=== PATIENT | male | born 1940 | race Caucasian/White ===

== ENCOUNTER 2017-04-05 14:26 | Outpatient (CLI) | payer MEDICARE, OTHER ==
--- NOTE | 2017-04-05 16:01 | XRAY Report ---
DATE OF SERVICE: 04/05/2017 THREE VIEW LUMBAR SPINE: 04/05/2017 CLINICAL INDICATION: Sciatica. FINDINGS: AP, lateral, and coned down views of the lumbar spine demonstrate moderate degenerative disk and facet disease. There is no evidence of acute fracture or subluxation. The bowel gas pattern appears unremarkable. IMPRESSION: MODERATE DEGENERATIVE CHANGES. TD: 04/05/2017 17:00
== END 2017-04-05 14:27 | disposition home or self-care (01) ==
LOC: DI.S 14:26
PROVIDERS: ATTEND Nurse Practitioner Family
DX: M51.36 Other intervertebral disc degeneration, lumbar region (principal); M47.896 Other spondylosis, lumbar region
CPT/HCPCS: 72100

== ENCOUNTER 2020-10-12 07:56 | Day surgery (SDC) | payer MEDICARE, OTHER ==
[2020-10-12] MEDS ORDERED: LACTATED RINGERS 1,000 ML IV ONE ×2 (08:17→09:41)
[2020-10-12] MEDS ORDERED: MIDAZOLAM 2 MG/2 ML VIAL ONE ×2 (09:09)
[2020-10-12] MEDS ORDERED: ONDANSETRON 4 MG/2 ML VIAL ONE (09:09)
[2020-10-12] MEDS ORDERED: fentaNYL 250 MCG/5 ML VIAL ONE (09:09)
[2020-10-12 10:10] VITALS: BP 125/64
== END 2020-10-12 07:57 | disposition home or self-care (01) ==
LOC: SDS 07:56
PROVIDERS: ATTEND Surgery
PROC: 0DBP8ZZ Excision of Rectum, Via Natural or Artificial Opening Endoscopic (ICD-10-PCS; principal; 2020-10-12 09:15)
DX: Z12.11 Encounter for screening for malignant neoplasm of colon (principal); K62.1 Rectal polyp; K64.8 Other hemorrhoids; K57.30 Diverticulosis of large intestine without perforation or abscess without bleeding; K64.4 Residual hemorrhoidal skin tags
CPT/HCPCS: 45380; J3010; J7120; 88305

== ENCOUNTER 2021-12-23 17:52 | Outpatient (CLI) | payer MEDICARE, OTHER | END 2021-12-23 17:53 | disposition critical access hospital (66) | LOC: EMS 17:52 | DX: R55 Syncope and collapse (principal); S01.01XA Laceration without foreign body of scalp, initial encounter; R11.2 Nausea with vomiting, unspecified; W18.39XA Other fall on same level, initial encounter; Y92.008 Other place in unspecified non-institutional (private) residence as the place of occurrence of the external cause; Z72.89 Other problems related to lifestyle | CPT/HCPCS: A0425; A0429 ==

== ENCOUNTER 2021-12-23 18:31 | Emergency (ER) | payer MEDICARE, OTHER ==
[2021-12-23] MEDS ORDERED: SODIUM CHLORIDE 0.9% 1,000 ML IV STA (19:18)
--- NOTE | 2021-12-23 19:18 | ED Physician Documentation ---
History of Present Illness - Stated complaint Stated Complaint: SYNCOPE, HEAD LAC - Chief complaint Chief Complaint: Trauma Hd/Nk - Additonal information Additional information: 81-year-old male presents emergency department for evaluation of a syncopal episode. His describes him as an alcoholic states he typically has 4 beers a day. He had had about 4 beers today as well as smoked cannabis. He was sitting at the dinner table getting ready to eat when he stood up fainted. His describes that he lost consciousness for just a few seconds but did become incontinent of urine. There were is no activity at the bedside to suggest seizure. No history of similar. He is not anticoagulated. He does have a large laceration his posterior occiput which is bleeding. However he is alert and oriented. He is requesting to urinate right now. Review of Systems Constitutional: reports: Reviewed and negative Eyes: reports: Reviewed and negative Ears: reports: Reviewed and negative Cardiac: reports: Reviewed and negative Respiratory: reports: Reviewed and negative GI: reports: Reviewed and negative : reports: Reviewed and negative Skin: reports: Laceration (s) Neurologic: reports: Syncope, Head injury. denies: Focal weakness, Numbness, Seizure, Confused, Headache, LOC Psychiatric: reports: Depressed PD PAST MEDICAL HISTORY - Past Medical History Cardiovascular:  Respiratory: None Endocrine/Autoimmune: None GI: Colon polyps : Benign prostate hypertrophy HEENT: None Psych: Depression, Anxiety Musculoskeletal: Osteoarthritis Derm: Psoriasis - Past Surgical History Past Surgical History: Yes General: Other Ortho: Knee replacement, Arthroscopic surgery, Other HEENT: Cataracts - Present Medications Home Medications: Ambulatory Orders Medication Instructions Recorded Confirmed Escitalopram [Lexapro] 20 mg PO DAILY 09/04/12 10/12/20 Fluticasone [Flonase] 2 sprays ALEXANDRA BID 10/20/14 10/12/20 HYDROcod/ACETAM 5/325 [[place] 5/325] 1 tab PO DAILY #5 tablet 12/23/21 - Allergies Allergies/Adverse Reactions: Allergies Allergy/AdvReac Type Severity Reaction Status Date / Time codeine Allergy Rash Verified 12/23/21 18:43 doxazosin AdvReac Rash Verified 12/23/21 18:43 lisinopril AdvReac Rash Verified 12/23/21 18:43 simvastatin AdvReac Rash Verified 12/23/21 18:43 tamsulosin HCl * AdvReac Anaphylaxis Verified 12/23/21 18:43 [From Flomax] - Social History Does the pt smoke?: No Smoking Status: Former smoker Does the pt drink ETOH?: Yes Does the pt have substance abuse?: No - Immunizations Immunizations are current?: No Immunizations: TDAP >10years/unknown - POLST Patient has POLST: No PD ED PE NORMAL - General General: Alert and oriented X 3, No acute distress, Well developed/nourished - HEENT HEENT: Other (Large 4 cm laceration posterior occiput. Active bleeding.) - Neck Neck: Supple, no meningeal sign, No adenopathy - Cardiac Cardiac: RRR, No gallop - Respiratory Respiratory: No respiratory distress, Clear bilaterally - Abdomen Abdomen: Normal bowel sounds, Soft, Non tender - Back Back: No CVA TTP, No spinal TTP - Derm Derm: Normal color, Warm and dry, No rash - Extremities Extremities: No deformity, No tenderness to palpate, Normal ROM s pain - Neuro Neuro: Alert and oriented X 3, fine arts chair 2-12 intact Eye Opening: Spontaneous Motor: Obeys Commands Verbal: Confused GCS Score: 14 Results - Vitals Vitals: Vital Signs - 24 hr 12/23/21 12/23/21 18:38 19:28 Temperature 36.7 C Heart Rate 70 Heart Rate [ 74 Sitting] Heart Rate [ 78 Standing] Heart Rate [ 71 Supine] Respiratory 16 Rate Blood Pressure 169/83 H Blood Pressure 177/91 H [Sitting] Blood Pressure 171/89 H [Standing] Blood Pressure 184/85 H [Supine] O2 Saturation 100 Oxygen O2 Source Room air - EKG (time done) 1912 Rhythm: NSR [place]: Normal Intervals: Normal OR. No: Prolonged QT QRS: Normal Ischemia: Normal ST segments Compare to prior EKG: Old EKG unavailable Computer interpretation: Agree with computer - Labs Labs: Laboratory Tests 12/23/21 12/23/21 19:43 19:43 WBC 7.1 RBC 4.59 L Hgb 15.2 Hct 46.7 MCV 101.7 H MCH 33.1 H MCHC 32.5 RDW 12.9 Plt Count 193 MPV 10.6 Neut # (Auto) 5.3 Lymph # (Auto) 1.0 L Sanders # (Auto) 0.7 Eos # (Auto) 0.1 Baso # (Auto) 0.0 Absolute Nucleated RBC 0.00 Nucleated RBC % 0.0 Sodium 128 L Potassium 3.9 Chloride 92 L Carbon Dioxide 26 Anion Gap 10.0 BUN 7 Creatinine 0.8 Estimated GFR (MDRD) 93 Glucose 97 Calcium 8.5 Total Bilirubin 0.6 AST 24 ALT 20 Alkaline Phosphatase 47 Total Protein 6.7 Albumin 3.8 Globulin 2.9 Albumin/Globulin Ratio 1.3 Lipase 174 H - Rads (name of study) CT head Radiology: Final report received (No acute intracranial finding) cervical ct Radiology: Final report received (No evidence of acute traumatic cervical spine injury) Procedures - Laceration (location) scalp lacer Length in cm: 4 Wound type: Curved, Into subcut fat Neurovascular status: Sensory intact Tendon involvement: Tendon intact Wound preparation: Irrigated copiously NS Skin layer closure: Netta (7 netta placed) Other: Patient tolerated well, No complications, Neurovascular intact, Tetanus UTD PD MEDICAL DECISION MAKING - ED course Complexity details: reviewed results, considered differential, d/w patient, d/w family ED course: 81-year-old male presents emergency department for evaluation of a syncopal episode. He is an alcoholic and drinks on average of 4 beers a day. He also smoked cannabis. He stood up this evening and then fainted falling backwards. He struck his head on the counter. He did sustain a 4 cm posterior scalp laceration which was easily closed with 7 netta at the bedside. Subsequent CT imaging of the head and neck were unremarkable. Patient presents alert well-appearing. He had negative orthostatics. He is noted to be modestly hyponatremic with a sodium of 128 though this is not too far from his baseline on previous labs. 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 Screening EKG is nonischemic. Troponin was negative. He presents with no focal deficits and has a stable gait. I discussed with the at the bedside the need to moderate his alcohol use. Patient is discharged home in stable condition emergent return precautions otherwise discussed I am prescribing a short course of short-acting opioid pain medication for this patient. I have reviewed the patients [employer] and no concerning findings were n oted. I have discussed that the opioids are for short term therapy only, and will not be refilled from the ED. Departure - Departure Disposition: 01 Home, Self Care Clinical Impression: Syncope and collapse, Alcohol abuse, Hyponatremia Scalp hematoma Qualifiers: Encounter type: initial encounter Qualified Code(s): S00.03XA - Contusion of scalp, initial encounter Occipital scalp laceration Qualifiers: Encounter type: initial encounter Qualified Code(s): S01.01XA - Laceration without foreign body of scalp, initial encounter Condition: Stable Record reviewed to determine appropriate education?: Yes Prescriptions: HYDROcod/ACETAM 5/325 [[place] 5/325] 1 tab PO DAILY #5 tablet Comments: Abdulkadir seen today in the emergency department after a fainting episode at home. It sounds as though the most likely cause of the fainting was related to alcohol and cannabis use today. He has a large laceration on the back of his scalp. 7 netta were placed. They should be removed in 7 to 10 days. He can shower normally and apply a simple antibiotic ointment such as bacitracin or Neosporin to it. The CT of his head and neck did not show any acute findings or fractures. His blood work shows a mildly low sodium at 128. Its previously been low. We often see low sodium levels in people that are heavy drinkers. This is a condition called beer potomania. There is no acute treatment for today however it is a sign of heavy alcohol use. Over the next few days it is important to monitor Abdulkadir for sudden severe headaches, uncontrolled vomiting, changes in behavior mentation, slurred speech or facial droop. If any of these occur he should return immediately to the ER for a second evaluation. I am prescribing a short course of narcotic pain medication for you. These are potentially dangerous and addictive medications that should be used carefully. These medications may constipate you. Take an [id number] stool softener (docusate) twice daily with plenty of water while taking these medications. If you go 24 hours without a bowel movement, take [id number] miralax, per package instructions. Do not drink or drive while taking these medications. If you received narcotic or sedating medications while in the emergency department, do not drive for 24 hours. Store this medication in a safe, secure place and out of reach of children. It is a violation of federal law to give or sell this medication to another person or to use in a manner other than prescribed. The ED will not refill narcotic prescriptions, including prescriptions lost or stolen. To dispose of unwanted medications: 1. [facility] at [address] in [place] has a medication drop box. They accept prescription medications (in pill form) Saturday through Saturday 9:00 a.m. to 5:00 p.m. 2. The [facility] [employer] accepts prescription medications (in pill form only) for disposal year round. Call for more information. 3. Contact the [facility] for the next [facility] sponsored prescription drug collection event. , [phone], or [phone]; Note that many narcotic pain relievers also contain Tylenol/acetaminophen. Please ensure that your total dose of acetaminophen from all sources does not exceed 3 g (3000 mg) per day.
--- NOTE | 2021-12-23 19:43 | CT Report ---
PROCEDURE: HEAD WO INDICATIONS: Syncope, head laceration TECHNIQUE: Noncontrast 4.5 mm thick angled axial sections acquired from the foramen magnum to the vertex. For r adiation dose reduction, the following was used: automated exposure control, adjustment of mA and/or kV according to patient size. COMPARISON: None. FINDINGS: Image quality: Excellent. CSF spaces: Basal cisterns are patent. No extra-axial fluid collections. Ventricles are normal in size and shape. Brain: No midline shift. No intracranial masses or hemorrhage. Baker-white matter interface is norm al. Skull and face: Calvarium and visualized facial bones are intact, without suspicious lesions. Sinuses: Visualized sinuses and mastoids are clear. IMPRESSION: No acute intracranial finding. Reviewed by: Deniz Smith MD on 12/23/2021 7:42 PM PDT Approved by: Deniz Smith MD on 12/23/2021 7:42 PM PDT Station ID: [id number]
--- NOTE | 2021-12-23 19:46 | CT Report ---
PROCEDURE: CERVICAL SPINE WO INDICATIONS: Syncope TECHNIQUE: Noncontrast 3 mm thick sections acquired from the skull base to the T4 level. Sagittal and coronal r eformats were then constructed. For radiation dose reduction, the following was used: automated exp osure control, adjustment of mA and/or kV according to patient size. COMPARISON: None. FINDINGS: Image quality: Excellent. Bones: No fractures or dislocations. Visualized superior ribs are intact. Soft tissues: Prevertebral soft tissues are normal in thickness. No paravertebral hematomas. No ap ical pneumothoraces. IMPRESSION: No CT evidence of acute traumatic cervical spine injury. Reviewed by: Deniz Smith MD on 12/23/2021 7:44 PM PDT Approved by: Deniz Smith MD on 12/23/2021 7:44 PM PDT Station ID: [id number]
[2021-12-23 19:49] LABS: BASOPHILS % (AUTO) 0.6 %; EOSINOPHILS # (AUTO) 0.1 10^3/uL (0.0-0.7); EOSINOPHILS % (AUTO) 1.5 %; HCT - HEMATOCRIT 46.7 % (42.0-52.0); HGB - HEMOGLOBIN 15.2 g/dL (14.0-18.0); LYMPHOCYTES % (AUTO) 13.3 %; MEAN CORPUSCULAR HEMOGLOBIN 33.1 pg (27.0-31.0); MEAN CORPUSCULAR HGB CONC 32.5 g/dL (32.0-36.0); MEAN CORPUSCULAR VOLUME 101.7 fL (80.0-94.0); MEAN PLATELET VOLUME 10.6 fL (7.4-11.4); MONOCYTES # (AUTO) 0.7 10^3/uL (0.0-1.0); NEUTROPHILS # (AUTO) 5.3 10^3/uL (1.5-6.6); NEUTROPHILS % (AUTO) 74.2 %; PLT - PLATELET COUNT 193 10^3/uL (130-450); RED BLOOD COUNT 4.59 10^6/uL (4.70-6.10); RED CELL DISTRIBUTION WIDTH 12.9 % (12.0-15.0); WHITE BLOOD COUNT 7.1 x10^3/uL (4.8-10.8)
[2021-12-23 20:02] LABS: ALBUMIN 3.8 g/dL (3.2-5.5); ALBUMIN/GLOBULIN RATIO 1.3 (1.0-2.2); BILIRUBIN,TOTAL 0.6 mg/dL (0.2-1.0); CALCIUM 8.5 mg/dL (8.5-10.3); CREATININE 0.8 mg/dL (0.6-1.2); POTASSIUM 3.9 mmol/L (3.5-5.0); TOTAL PROTEIN 6.7 g/dL (6.7-8.2)
[2021-12-23] MEDS ORDERED: HYDROcod/ACETAM 5/325 MG TABLET PO STA (20:13)
[2021-12-23 20:32] VITALS: BP 196/101
== END 2021-12-23 20:31 | disposition home or self-care (01) ==
LOC: EDUNIT# → ED 18:31
DX: S01.01XA Laceration without foreign body of scalp, initial encounter (principal); W19.XXXA Unspecified fall, initial encounter; F10.10 Alcohol abuse, uncomplicated; Z87.891 Personal history of nicotine dependence
CPT/HCPCS: 12002; 36415; 70450; 72125; 80053; 83690; 85025; 93005; 96360; 99284; A9270

== ENCOUNTER 2023-06-16 18:26 | Outpatient (CLI) | payer MEDICARE, OTHER | END 2023-06-16 18:27 | disposition critical access hospital (66) | LOC: EMS 18:26 | DX: S01.112A Laceration without foreign body of left eyelid and periocular area, initial encounter (principal); W01.0XXA Fall on same level from slipping, tripping and stumbling without subsequent striking against object, initial encounter; Y92.009 Unspecified place in unspecified non-institutional (private) residence as the place of occurrence of the external cause; R42 Dizziness and giddiness | CPT/HCPCS: A0425; A0429 ==

== ENCOUNTER 2023-06-16 19:05 | Emergency (ER) | payer MEDICARE, OTHER ==
--- NOTE | 2023-06-16 20:12 | CT Report ---
PROCEDURE: Cervical Spine WO INDICATIONS: fall, etoh, pain TECHNIQUE: Noncontrast 3 mm thick sections acquired from the skull base to the T4 level. Sagittal and coronal r eformats were then constructed. For radiation dose reduction, the following was used: automated exp osure control, adjustment of mA and/or kV according to patient size. COMPARISON: None. FINDINGS: Image quality: Suboptimal due to motion artifact. Bones: No fractures or dislocations. Visualized superior ribs are intact. Moderate right neural fo raminal narrowing at C4-5 and C5-6. Soft tissues: Prevertebral soft tissues are normal in thickness. No paravertebral hematomas. No ap ical pneumothoraces. IMPRESSION: No acute, displaced fracture or traumatic subluxation. Reviewed by: Shelton Jain MD on 06/16/2023 8:11 PM PDT Approved by: Shelton Jain MD on 06/16/2023 8:11 PM PDT Station ID: [id number]
--- NOTE | 2023-06-16 20:13 | CT Report ---
PROCEDURE: Head WO INDICATIONS: fall, etoh, pain TECHNIQUE: Noncontrast 4.5 mm thick angled axial sections acquired from the foramen magnum to the vertex. For r adiation dose reduction, the following was used: automated exposure control, adjustment of mA and/or kV according to patient size. COMPARISON: 12/23/2021 FINDINGS: Image quality: Excellent. CSF spaces: Basal cisterns are patent. No extra-axial fluid collections. Ventricles are normal in size and shape. Brain: No midline shift. No intracranial masses or hemorrhage. Baker-white matter interface is norm al. Skull and face: Calvarium and visualized facial bones are intact, without suspicious lesions. Sinuses: Visualized sinuses and mastoids are clear. IMPRESSION: No acute intracranial pathology. Reviewed by: Shelton Jain MD on 06/16/2023 8:12 PM PDT Approved by: Shelton Jain MD on 06/16/2023 8:12 PM PDT Station ID: [id number]
--- NOTE | 2023-06-16 20:15 | CT Report ---
PROCEDURE: Maxillofacial WO INDICATIONS: fall, etoh, pain TECHNIQUE: Noncontrast 1.5 mm thick axial images acquired from the mandible through the frontal sinuses, with co meagan and sagittal reformatting. For radiation dose reduction, the following was used: automated ex posure control, adjustment of mA and/or kV according to patient size. COMPARISON: None. FINDINGS: Image quality: Diagnostic. Bones and teeth: Orbital ma are intact. Sinus ma show no fracture or deformity. Nasal bones and septum are intact. Visualized portions of the mandible demonstrate no fractures or subluxation. Zygomatic arches are intact. Pterygoid plates are intact. Visualized portions of the skull base an d auditory canals are intact. Sinuses: Paranasal sinuses are aerated, without fluid levels, or mucoceles. Mastoid air cells are a erated. Mild mucosal thickening of the maxillary sinuses, left frontal sinus and ethmoid air cells Soft tissues: No edema, masses, or fluid collections. No enlarged lymph nodes. No soft tissue lace rations or debris. Vascular: Visualized vascular structures appear normal in the absence of contrast. Bony vascular fo ramina and canals are intact. IMPRESSION: No displaced fracture or air-fluid level. Reviewed by: Shelton Jain MD on 06/16/2023 8:14 PM PDT Approved by: Shelton Jain MD on 06/16/2023 8:14 PM PDT Station ID: [id number]
--- NOTE | 2023-06-16 20:20 | ED Physician Documentation ---
PD HPI HEAD INJURY - Stated complaint Stated Complaint: ETOH/GLF/FACIAL LAC - Chief complaint Chief Complaint: Trauma Hd/Nk - History obtained from History obtained from: Patient, Family - Additional information Additional information: Patient is an 82-year-old male presenting for evaluation of ground-level fall at home. Patient states he has been drinking a number of beers this evening and was walking back inside his home when he turned quickly and then fell. He did hit his head. There was no LOC. Family member at the bedside also states that she witnessed the fall and there was no LOC or witnessed seizure activity. Patient states that he regularly drinks a similar amount daily. He also admits to cannabis use. Does not take any blood thinners. Is unsure of his last tetanus. Review of Systems Constitutional: denies: Fever Cardiac: denies: Chest pain / pressure Respiratory: denies: Dyspnea GI: denies: Abdominal Pain Neurologic: reports: Head injury PD PAST MEDICAL HISTORY - Past Medical History Past Medical History: Yes Cardiovascular:  Respiratory: None Endocrine/Autoimmune: None GI: Colon polyps : Benign prostate hypertrophy HEENT: None Psych: Depression, Anxiety Musculoskeletal: Osteoarthritis Derm: Psoriasis - Past Surgical History Past Surgical History: Yes General: Other Ortho: Knee replacement, Arthroscopic surgery, Other HEENT: Cataracts - Present Medications Home Medications: Ambulatory Orders Medication Instructions Recorded Confirmed Escitalopram [Lexapro] 20 mg PO DAILY 09/04/12 10/12/20 Fluticasone [Flonase] 2 sprays ALEXANDRA BID 10/20/14 10/12/20 HYDROcod/ACETAM 5/325 [[employer] 5/325] 1 tab PO DAILY #5 tablet 12/23/21 - Allergies Allergies/Adverse Reactions: Allergies Allergy/AdvReac Type Severity Reaction Status Date / Time codeine Allergy Rash Verified 06/16/23 19:12 doxazosin AdvReac Rash Verified 06/16/23 19:12 lisinopril AdvReac Rash Verified 06/16/23 19:12 simvastatin AdvReac Rash Verified 06/16/23 19:12 tamsulosin HCl * AdvReac Anaphylaxis Verified 06/16/23 19:12 [From Flomax] - Social History Does the pt smoke?: No Smoking Status: Never smoker Does the pt drink ETOH?: Yes Does the pt have substance abuse?: No - Immunizations Immunizations are current?: No Immunizations: TDAP >10years/unknown - POLST Patient has POLST: No PD ED PE NORMAL - General General: Alert and oriented X 3, No acute distress, Well developed/nourished - HEENT HEENT: PERRL, EOMI, Moist mucous membranes, Pharynx benign, Other (Laceration above left eyebrow; Ecchymosis below left eye; No proptosis) - Neck Neck: Supple, no meningeal sign, No bony TTP - Cardiac Cardiac: RRR, Strong equal pulses - Respiratory Respiratory: No respiratory distress, Clear bilaterally - Abdomen Abdomen: Normal bowel sounds, Soft, Non tender, Non distended - Back Back: No spinal TTP - Derm Derm: Warm and dry - Extremities Extremities: No deformity - Neuro Neuro: Alert and oriented X 3, railroad firer/fireman 2-12 intact, No motor deficit, No sensory deficit, Normal speech Eye Opening: Spontaneous Motor: Obeys Commands Verbal: Oriented GCS Score: 15 PD ED PE EXPANDED - HEENT HEENT Visual: 1 - laceration Results - Vitals Vitals: Vital Signs - 24 hr 06/16/23 06/16/23 06/16/23 19:12 19:15 21:15 Temperature 36.8 C 36.8 C Heart Rate 72 72 73 Respiratory 16 22 16 Rate Blood Pressure 160/70 H 160/70 H 160/90 H O2 Saturation 95 95 96 Oxygen O2 Source Room air Procedures - Laceration (location) L face Length in cm: 2 Wound type: Linear, Clean Anesthesia: LET, Lidocaine 1% with epi Wound preparation: Hibiclens, Irrigated copiously NS Skin layer closure: Size #-0 - enter number (4-0), Sutures - enter # (5) Other: Patient tolerated well, No complications, Neurovascular intact, Dressing applied, Tetanus booster given PD Medical Decision Making - ED course Complexity details: reviewed results, d/w patient, d/w family ED course: Patient is an 82-year-old male presenting for evaluation after ground-level fall at home in the setting of alcohol use. Patient does have a laceration above the left eyebrow. Normal neuroexam. Clear speech and ambulating independently. Patient is unsure of his last tetanus so was given 1 today. Laceration was cleaned and sutured without issue. No signs of orbital entrapment. CT head, cervical spine, maxillofacial were obtained and reviewed and without significant findings. Patient again is ambulatory here and clinically sober for discharge. We did discuss his alcohol use and he does want to consider getting help for this. I did give him information for [facility] and also recommended close follow-up with his primary care doctor. Family member is here with him. Counseled on wound care, need to return for suture removal as well as concerning symptoms to return for. Departure - Departure Disposition: Home, Self Care Clinical Impression: Facial laceration, Head injury, Alcohol abuse Condition: Stable Instructions: ED Head Injury Closed, ED Laceration Facial Sutr Tape, ED Alcohol Abuse Comments: You were evaluated after falling and hitting your head. The CT scan of your head, neck and face do not show any signs of broken bones or bleeding. You do have a laceration to your face that was closed with 5 stitches. These should be removed in approximately 5 to 7 days. You can return to the ER the walk-in clinic. Come back for any signs of infection which would include: Redness, swelling, drainage, increased pain, or fevers. You can wash it soap and water. Keep it covered and moist with bacitracin ointment which is available over the counter; avoid neosporin. Follow-up with your physician in about 5-7 days for suture removal. Please consider cutting back or stopping your alcohol use. I would recommend close follow-up with your primary care doctor and have also included information for a local detox facility. Return to the ER with any worsening symptoms. [facility] [address] [place] [address] Main The [facility] offers a monitored and safe setting for individuals withdrawing from alcohol and drugs, and counseling for individuals experiencing a mental health crisis. All services are provided in a 10-bed facility where intensive medical monitoring is required along with stabilization services. The goal of these services is to assess a clients mental health and substance use disorder related needs, and assist them in accessing the services they need to recover. Forms: PCP List Discharge Date/Time: 06/16/23 21:54
[2023-06-16] MEDS: TETANUS/DIPHTHERIA/PERTUSSIS 0.5 ML SYRINGE IM ONE (20:38)
[2023-06-16] MEDS: LIDOCAINE-EPINEPH-TETRACAINE 3 ML SYRINGE TOP STA (20:40)
[2023-06-16 21:38] VITALS: BP 160/90; O2SAT 96
== END 2023-06-16 21:54 | disposition home or self-care (01) ==
LOC: EDUNIT# → ED 19:05
DX: S09.90XA Unspecified injury of head, initial encounter (principal); S01.81XA Laceration without foreign body of other part of head, initial encounter; W18.30XA Fall on same level, unspecified, initial encounter; Y92.017 Garden or yard in single-family (private) house as the place of occurrence of the external cause; F10.10 Alcohol abuse, uncomplicated; Z23 Encounter for immunization; Z79.899 Other long term (current) drug therapy
CPT/HCPCS: 12011; 90471; 99283; 99284

== ENCOUNTER 2023-10-17 20:01 | Outpatient (CLI) | payer MEDICARE, OTHER | END 2023-10-17 23:59 | disposition critical access hospital (66) | LOC: EMS 20:01 | DX: R55 Syncope and collapse (principal); S00.81XA Abrasion of other part of head, initial encounter; W18.39XA Other fall on same level, initial encounter; Y92.59 Other trade areas as the place of occurrence of the external cause; F10.90 Alcohol use, unspecified, uncomplicated | CPT/HCPCS: A0425; A0429 ==

== ENCOUNTER 2023-10-17 20:27 | Emergency (ER) | payer MEDICARE, OTHER ==
[2023-10-17] MEDS: SODIUM CHLORIDE 0.9% 1,000 ML IV STA (20:46)
--- NOTE | 2023-10-17 21:03 | ED Physician Documentation ---
History of Present Illness - Stated complaint Stated Complaint: SYNCOPE - Chief complaint Chief Complaint: Trauma Hd/Nk - History obtained from History obtained from: Patient, Family () - Additonal information Additional information: 82-year-old man with past medical history of depression on escitalopram, otherwise healthy presents with ground-level fall x 2 at a bar tonight. states that he had at least 5 servings of alcohol and was stumbling on the way to the bathroom then she was told that he fell in the bathroom. Patient denies loss of consciousness but does state that he hit his head. PD PAST MEDICAL HISTORY - Past Medical History Past Medical History: Yes Cardiovascular:  Respiratory: None Endocrine/Autoimmune: None GI: Colon polyps : Benign prostate hypertrophy HEENT: None Psych: Depression, Anxiety Musculoskeletal: Osteoarthritis Derm: Psoriasis - Past Surgical History Past Surgical History: Yes General: Other Ortho: Knee replacement, Arthroscopic surgery, Other HEENT: Cataracts - Present Medications Home Medications: Ambulatory Orders Medication Instructions Recorded Confirmed Escitalopram [Lexapro] 20 mg PO DAILY 09/04/12 10/12/20 Fluticasone [Flonase] 2 sprays ALEXANDRA BID 10/20/14 10/12/20 HYDROcod/ACETAM 5/325 [Warriormine 5/325] 1 tab PO DAILY #5 tablet 12/23/21 - Allergies Allergies/Adverse Reactions: Allergies Allergy/AdvReac Type Severity Reaction Status Date / Time codeine Allergy Rash Verified 10/17/23 20:33 doxazosin AdvReac Rash Verified 10/17/23 20:33 lisinopril AdvReac Rash Verified 10/17/23 20:33 simvastatin AdvReac Rash Verified 10/17/23 20:33 tamsulosin HCl * AdvReac Anaphylaxis Verified 10/17/23 20:33 [From Flomax] - Social History Does the pt smoke?: No Smoking Status: Never smoker Does the pt drink ETOH?: Yes Does the pt have substance abuse?: No - Immunizations Immunizations are current?: No Immunizations: TDAP >10years/unknown - POLST Patient has POLST: No PD ED PE NORMAL - Vitals Vital signs reviewed: Yes - General General: Alert and oriented X 3, No acute distress, Well developed/nourished - HEENT HEENT: Atraumatic, PERRL, EOMI - Neck Neck: Supple, no meningeal sign - Cardiac Cardiac: RRR - Respiratory Respiratory: No respiratory distress, Clear bilaterally - Abdomen Abdomen: Non tender, Non distended - Derm Derm: Normal color, Warm and dry - Neuro Neuro: Alert and oriented X 3 - Psych Psych: Other (clinically intoxicated) Results - Vitals Vitals: Vital Signs - 24 hr 10/17/23 20:33 Temperature 36.5 C Heart Rate 71 Respiratory 18 Rate Blood Pressure 170/76 H O2 Saturation 96 Oxygen O2 Source Room air - EKG (time done) 2049 EKG releavant findings:: EKG personally interpreted by author of this note. Relevant findings are: Rate: Rate (enter#) (71) Rhythm: NSR [place]: Normal Intervals: Normal [place] QRS: Normal Ischemia: Normal ST segments - Labs Labs: Laboratory Tests 10/17/23 10/17/23 20:57 20:57 WBC 9.2 RBC 4.84 Hgb 15.7 Hct 46.9 MCV 96.9 H MCH 32.4 H MCHC 33.5 RDW 12.7 Plt Count 200 MPV 10.1 Neut # (Auto) 5.5 Lymph # (Auto) 2.2 Mclean # (Auto) 1.1 H Eos # (Auto) 0.4 Baso # (Auto) 0.0 Absolute Nucleated RBC 0.00 Nucleated RBC % 0.0 Sodium 123 L Potassium 3.4 L Chloride 88 L Carbon Dioxide 26 Anion Gap 9.0 BUN 10 Creatinine 0.8 Estimated GFR (MDRD) 93 Glucose 98 Calcium 8.9 Total Bilirubin 0.5 AST 20 ALT 14 Alkaline Phosphatase 60 Total Protein 6.8 Albumin 4.1 Globulin 2.7 Albumin/Globulin Ratio 1.5 Lipase 239 H Ethyl Alcohol 219.0 PD Medical Decision Making - ED course ED course: 82yM p/w alcohol intoxication and fall from standing with +HT but no LOC. patient has no complaints at this time. Plan to obtain basic labs, etoh level and CT head. Patient without any cervical spine complaints and nontender on exam. given low mechanism injury will hold off on ct c spine. Note that his labs show elevated alcohol level, chronic hyponatremia that is stable, and elevated lipase without signs or symptoms of pancreatitis at this time. Plan to dc home given normal traumatic workup with SBIRT materials and outpatient f/u with pcp. Departure - Departure Disposition: 01 Home, Self Care Clinical Impression: Hyponatremia, Alcohol abuse, Head injury Condition: Stable Instructions: Alcoholism Get Help Comments: You were seen in the emergency department for alcohol intoxication and multiple falls. Your head ct was normal. Please follow-up with your primary care provider regarding your sodium levels and for repeat lipase testing and return to the emergency department if you have any new or worsening symptoms or other concerns. Forms: PCP List
[2023-10-17 21:04] LABS: BASOPHILS % (AUTO) 0.1 %; EOSINOPHILS # (AUTO) 0.4 10^3/uL (0.0-0.7); HCT - HEMATOCRIT 46.9 % (42.0-52.0); HGB - HEMOGLOBIN 15.7 g/dL (14.0-18.0); LYMPHOCYTES # (AUTO) 2.2 10^3/uL (1.5-3.5); LYMPHOCYTES % (AUTO) 23.5 %; MEAN CORPUSCULAR HEMOGLOBIN 32.4 pg (27.0-31.0); MEAN CORPUSCULAR HGB CONC 33.5 g/dL (32.0-36.0); MEAN CORPUSCULAR VOLUME 96.9 fL (80.0-94.0); MEAN PLATELET VOLUME 10.1 fL (7.4-11.4); MONOCYTES # (AUTO) 1.1 10^3/uL (0.0-1.0); MONOCYTES % (AUTO) 12.3 %; NEUTROPHILS # (AUTO) 5.5 10^3/uL (1.5-6.6); NEUTROPHILS % (AUTO) 59.8 %; PLT - PLATELET COUNT 200 10^3/uL (130-450); RED BLOOD COUNT 4.84 10^6/uL (4.70-6.10); RED CELL DISTRIBUTION WIDTH 12.7 % (12.0-15.0); WHITE BLOOD COUNT 9.2 x10^3/uL (4.8-10.8)
[2023-10-17 21:18] LABS: ALBUMIN 4.1 g/dL (3.2-5.5); ALBUMIN/GLOBULIN RATIO 1.5 (1.0-2.2); BILIRUBIN,TOTAL 0.5 mg/dL (0.2-1.0); CALCIUM 8.9 mg/dL (8.5-10.3); CREATININE 0.8 mg/dL (0.6-1.3); POTASSIUM 3.4 mmol/L (3.5-4.5); TOTAL PROTEIN 6.8 g/dL (6.4-8.9)
--- NOTE | 2023-10-17 21:28 | CT Report ---
PROCEDURE: Head WO INDICATIONS: fall +HT syncope +etoh TECHNIQUE: Noncontrast 4.5 mm thick angled axial sections acquired from the foramen magnum to the vertex. For r adiation dose reduction, the following was used: automated exposure control, adjustment of mA and/or kV according to patient size. COMPARISON: 12/23/2021, 06/16/2023. FINDINGS: Image quality: Diagnostic. CSF spaces: Basal cisterns are patent. No extra-axial fluid collections. Ventricles are normal in size and shape. Brain: No midline shift. No intracranial masses or hemorrhage. No mass effect. Baker-white matter i nterface is normal. There cerebral volume loss for age with resultant ventricular and sulcal prominen ce. There are periventricular and deep white matter chronic small vessel ischemic changes. Atheroscle rotic calcifications are noted in the intracranial segments of the bilateral internal carotid arterie s. Skull and face: Calvarium and visualized facial bones are intact, without suspicious lesions. Sinuses: Visualized sinuses and mastoids are clear. IMPRESSION: No acute intracranial pathology. Reviewed by: Varinder Rivera MD on 10/17/2023 9:27 PM PDT Approved by: Varinder Rivera MD on 10/17/2023 9:27 PM PDT Station ID: [id number]
[2023-10-17 22:48] VITALS: BP 151/62; O2SAT 98
== END 2023-10-17 22:42 | disposition home or self-care (01) ==
LOC: EDUNIT# → ED 20:27
DX: S09.90XA Unspecified injury of head, initial encounter (principal); W18.39XA Other fall on same level, initial encounter; Y92.59 Other trade areas as the place of occurrence of the external cause; F10.10 Alcohol abuse, uncomplicated; E87.1 Hypo-osmolality and hyponatremia; N40.0 Benign prostatic hyperplasia without lower urinary tract symptoms; F32.A Depression, unspecified; Z79.899 Other long term (current) drug therapy; Z86.010 Personal history of colon polyps
CPT/HCPCS: 36415; 70450; 80053; 83690; 85025; 99283; 99284; G0480; 82077